=== PATIENT | female | born 1995 | race Caucasian/White ===

== ENCOUNTER 2018-02-15 15:53 | Outpatient (CLI) | payer MEDICAID ==
--- NOTE | 2018-02-18 15:03 | Non Stress Test Report ---
Non Stress Test Datetime Report Generated by CPN: 02/18/2018 15:03 DEMOGRAPHIC EGA NST: 40.1 INDICATION Indication for Study: Ordered by Provider MONITORING Monitor Explained: Monitor Explained; Test Explained; Patient Verbalized Understanding Time on Monitor: 02/15/2018 16:04 Time off Monitor: 02/15/2018 17:13 NST Duration: 69 NST INTERVENTIONS NST Interventions: PO Hydration; Reposition Patient Physician Notified NST: CRosaM, CNM BABY A: [id number] BABY A Movement : Present Contraction Frequency : Irregular FHR Baseline : 140 Accelerations : 15X15 Decelerations : None Variability : Moderate 6-25bpm NST Review: Meets Criteria for Reactive NST NST Review and Verified By : MINNIE Johnson Results: Reactive NST REPORT Report Trigger: Send Report
== END 2018-02-15 17:15 | disposition home or self-care (01) ==
LOC: LC 15:53
PROVIDERS: ATTEND Obstetrics & Gynecology
DX: O47.1 False labor at or after 37 completed weeks of gestation (principal); O48.0 Post-term pregnancy; Z3A.40 40 weeks gestation of pregnancy
CPT/HCPCS: 59025

== ENCOUNTER 2018-02-18 15:12 | Outpatient (CLI) | payer OTHER ==
--- NOTE | 2018-02-18 15:46 | Non Stress Test Report ---
Non Stress Test Datetime Report Generated by CPN: 02/18/2018 15:46 DEMOGRAPHIC Test Number: 1 EGA NST: 40.4 INDICATION Indication for Study: Ordered by Provider MONITORING Monitor Explained: Monitor Explained; Test Explained; Patient Verbalized Understanding Time on Monitor: 02/18/2018 15:21 Time off Monitor: 02/18/2018 15:43 NST Duration: 22 NST INTERVENTIONS NST Interventions: PO Hydration Physician Notified NST: Sebastian BABY A Movement : Present Contraction Frequency : 9 FHR Baseline : 130 Accelerations : 15X15 Variability : Moderate 6-25bpm NST Review: Meets Criteria for Reactive NST NST Review and Verified By : Rodriguez Gilliam RN NST Results: Reactive NST REPORT Report Trigger: Send Report
--- NOTE | 2018-02-18 17:20 | RADIOLOGY REPORT (SQ) ---
EXAM DESCRIPTION: U/S OB LIMITED COMPLETED DATE/TIME: 02/18/2018 5:13 pm REASON FOR STUDY: iup 40+4 for ADILIA COMPARISON: None. TECHNIQUE: Limited transabdominal grayscale ultrasound for evaluation of specific requested obstetri gordo parameters. LIMITATIONS: None. FINDINGS: Limited sonographic imaging shows an ADILIA of 11.4 cm. IMPRESSION: The ADILIA is 11.4 cm. Trimester of : Third trimester - 28 weeks to delivery. TECHNICAL DOCUMENTATION: JOB ID: [id number]- All Rights Reserved Reading location - IP/workstation name: [email or web address]
== END 2018-02-18 17:28 | disposition home or self-care (01) ==
LOC: LC 15:12
PROVIDERS: ATTEND Obstetrics & Gynecology Gynecology
PROC: 4A1HXCZ Monitoring of Products of Conception, Cardiac Rate, External Approach (ICD-10-PCS; principal; 2018-02-18)
DX: O48.0 Post-term pregnancy (principal); Z3A.40 40 weeks gestation of pregnancy
CPT/HCPCS: 59025; 76815

== ENCOUNTER 2018-02-20 17:50 | Inpatient (IN) | payer OTHER, MEDICAID ==
[2018-02-20] MEDS ORDERED: OXYTOCIN/NORMAL SALINE 20 UNIT/1,000 ML RTUINJ IV PRN (18:40)
[2018-02-20 18:53] LABS: APPEARANCE,URINE CLOUDY; BILIRUBIN,URINE NEGATIVE (NEGATIVE); COLOR,URINE YELLOW; GLUCOSE, URINE NEGATIVE (NEGATIVE); KETONES,URINE NEGATIVE (NEGATIVE); LEUKOCYTE ESTERASE,URINE SMALL (NEGATIVE); NITRITE,URINE NEGATIVE (NEGATIVE); PROTEIN,URINE NEGATIVE (NEGATIVE); URINE SPECIFIC GRAVITY 1.018; UROBILINOGEN,URINE NEGATIVE mg/dL (<2.0)
[2018-02-20] MEDS ORDERED: RINGERS SOLUTION,LACTATED 300 ML IV ONE (19:00)
[2018-02-20 19:08] LABS: ABSOLUTE BASOPHILS # (AUTO) 0.1 10^3/uL (0.0-0.2); ABSOLUTE EOSINOPHILS # (AUTO) 0.1 10^3/uL (0.0-0.6); ABSOLUTE LYMPHOCYTES (AUTO) 2.2 10^3/uL (0.5-4.7); ABSOLUTE MONOCYTES (AUTO) 0.8 10^3/uL (0.1-1.4); ABSOLUTE NEUT (AUTO) 7.2 10^3/uL (1.7-8.2); BASOPHILS % (AUTO) 0.6 % (0-2); EOSINOPHILS % (AUTO) 1.1 % (0-6); HEMATOCRIT 35.3 % (36.0-47.0); HEMOGLOBIN 11.5 g/dL (12.0-15.5); LYMPHOCYTES % (AUTO) 20.7 % (13-45); MEAN CORPUSCULAR HGB CONC 32.5 g/dL (32.0-36.0); MEAN CORPUSCULAR VOLUME 80 fl (80-97); MONOCYTES % (AUTO) 7.9 % (3-13); PLATELET COUNT 301 10^3/uL (150-450); RED CELL DISTRIBUTION WIDTH 14.5 % (11.5-14.0); SEGMENTED NEUTROPHILS % (AUTO) 69.7 % (42-78); TOTAL CELLS COUNTED % (AUTO) 100 %; WHITE BLOOD COUNT 10.4 10^3/uL (4.0-10.5)
[2018-02-20 19:20] LABS: URINE AMPHETAMINES SCREEN NEGATIVE; URINE BARBITURATES SCREEN NEGATIVE; URINE BENZODIAZEPINES SCREEN NEGATIVE; URINE COCAINE SCREEN NEGATIVE; URINE MARIJUANA (THC) SCREEN NEGATIVE; URINE METHADONE SCREEN NEGATIVE; URINE PHENCYCLIDINE SCREEN NEGATIVE
[2018-02-20] MEDS ORDERED: DINOPROSTONE 10 MG VAGINAL INSERT.SR ONE (19:36)
[2018-02-20] MEDS: RINGERS SOLUTION,LACTATED 1,000 ML IV PRN (19:42)
[2018-02-20] MEDS: DINOPROSTONE 10 MG VAGINAL INSERT.SR PV PRN (19:43)
[2018-02-21] MEDS: DINOPROSTONE 10 MG VAGINAL INSERT.SR PV PRN (04:07)
[2018-02-21] MEDS: RINGERS SOLUTION,LACTATED 1,000 ML IV PRN (04:11)
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
[2018-02-21] MEDS ORDERED: OXYTOCIN/NORMAL SALINE 0 UNIT/0 ML RTUINJ ONE (10:17)
[2018-02-21] MEDS ORDERED: LIDOCAINE 1% INJ-PF (10 MG/ML) 30 ML SDV ONE (10:18)
[2018-02-21] MEDS ORDERED: MISOPROSTOL 0.2 MG TABLET ONE (10:18)
[2018-02-21] MEDS ORDERED: ROCURONIUM BROMIDE INJ 50 MG/5 ML VIAL IV ONE (11:28)
[2018-02-21] MEDS ORDERED: SUCCINYLCHOLINE CHLORIDE INJ 200 MG/10 ML VIAL ONE (11:28)
[2018-02-21] MEDS ORDERED: OXYTOCIN/NORMAL SALINE 20 UNIT/1,000 ML RTUINJ ONE ×2 (14:48→14:51)
[2018-02-21] MEDS ORDERED: GLYCOPYRROLATE INJ 0.4 MG/2 ML VIAL ONE (14:48)
[2018-02-21] MEDS ORDERED: CEFAZOLIN INJ 1 GM VIAL ONE ×2 (14:48→15:12)
[2018-02-21] MEDS ORDERED: CITRIC ACID/SODIUM CITRATE ORAL SOLN 15 ML UDCUP ONE (14:48)
[2018-02-21] MEDS ORDERED: NEOMY/BACITRAC ZN/POLY OINT 15 GM ONE (14:49)
[2018-02-21] MEDS ORDERED: METHYLERGONOVINE MALEATE INJ/PF 0.2 MG/1 ML AMPULE ONE (14:49)
[2018-02-21] MEDS ORDERED: OXYTOCIN 10 UNIT/ML VIAL ONE (14:50)
[2018-02-21] MEDS ORDERED: FENTANYL CITRATE INJ/PF 100 MCG/2 ML AMPUL ONE (14:50)
[2018-02-21] MEDS ORDERED: ONDANSETRON HCL INJ/PF 4 MG/2 ML SDV ONE ×2 (14:51→15:23)
[2018-02-21] MEDS ORDERED: EPHEDRINE SULFATE INJ 50 MG/1 ML AMPULE ONE (14:51)
[2018-02-21] MEDS ORDERED: MIDAZOLAM 2 MG/2 ML INJ ONE (14:51)
[2018-02-21] MEDS ORDERED: PROMETHAZINE HCL INJ 25 MG/1 ML VIAL IV PRN ×2 (15:22→16:08)
[2018-02-21] MEDS ORDERED: FENTANYL CITRATE INJ/PF 100 MCG/2 ML AMPUL IV PRN ×3 (15:22)
[2018-02-21] MEDS ORDERED: MEPERIDINE HCL/PF INJ 25 MG/1 ML DISP.SYRIN IV PRN (15:22)
[2018-02-21] MEDS ORDERED: MORPHINE SULFATE 10 MG/ML INJ IV PRN (15:22)
[2018-02-21] MEDS ORDERED: ONDANSETRON HCL INJ/PF 4 MG/2 ML SDV IV PRN (15:22)
[2018-02-21] MEDS ORDERED: DIPHENHYDRAMINE HCL 50 MG/ML VIAL IV PRN (15:22)
[2018-02-21] MEDS ORDERED: MORPHINE SULFATE 10 MG/ML INJ ONE (15:23)
[2018-02-21] MEDS ORDERED: ACETAMINOPHEN 100 ML IV ONE (16:02)
[2018-02-21] MEDS ORDERED: OXYTOCIN/NORMAL SALINE 20 UNIT/1,000 ML RTUINJ IV PRN (16:08)
[2018-02-21] MEDS ORDERED: DIPH/PERTUSS(ACELL)/TETANUS VAC/PF 0.5 ML SYR (>=10YO) IM PRN (16:08)
[2018-02-21] MEDS ORDERED: ACETAMINOPHEN 325 MG TABLET PO PRN (16:08)
[2018-02-21] MEDS ORDERED: MEASLES,MUMPS&RUBELLA VACC/PF 0.5 ML VIAL SUBCUT PRN (16:08)
[2018-02-21] MEDS ORDERED: SIMETHICONE 80 MG TAB.CHEW PO PRN (16:08)
[2018-02-21] MEDS ORDERED: ACETAMINOPHEN 100 ML IV PRN (16:08)
[2018-02-21] MEDS ORDERED: OXYCODONE-ACETAMINOPHEN 5-325 MG TABLET PO PRN ×2 (16:08)
--- NOTE | 2018-02-21 16:14 | RADIOLOGY REPORT (SQ) ---
EXAM DESCRIPTION: KUB/ABDOMEN (SINGLE VIEW) COMPLETED DATE/TIME: 02/21/2018 3:50 pm REASON FOR STUDY: STAT SSECTION, NO COUNT PERFORMED COMPARISON: None. NUMBER OF VIEWS: One view. TECHNIQUE: Supine radiographic image of the abdomen acquired. LIMITATIONS: None. FINDINGS: Immediate post images of the mid and lower abdomen and pelvis are submitted. Gregory catheter in the bladder. Enlarged uterus. Normal bowel gas pattern. No retained s urgical instruments or markers from laparotomy sponges. There is a metallic linear foreign body over the left gluteal soft tissues marked with a [place]. Thi s could represent a portion of an electrode IMPRESSION: No retained surgical instruments over the visualized abdomen or pelvis TECHNICAL DOCUMENTATION: JOB ID: [id number] [employer]- All Rights Reserved Reading location - IP/workstation name: [email or web address]
[2018-02-21] MEDS ORDERED: KETOROLAC TROMETHAMINE INJ/PF 30 MG/1 ML SDV IV ONE (16:15)
[2018-02-21] MEDS ORDERED: HYDROMORPHONE HCL INJ/PF 2 MG/ML AMPULE ONE (16:21)
--- NOTE | 2018-02-21 16:27 | Brief Operative Note ---
BRIEF OPERATIVE REPORT DATE OF SURGERY: 02/21/18 TIME OF SURGERY: 16:00 PREOPERATIVE DIAGNOSIS: Cord prolapse, 7cm, , 41+0ega POSTOPERATIVE DIAGNOSIS: ISABEL - delivered SURGEON: KIKE FRANCO FINDINGS: VMI Apgars 2/7, weight 9#2oz, Normal uterus, normal bilateral tubes/ ovaries. IVF 2000ml, UOP 275ml, EBL 800ml. COMPLICATIONS: None ESTIMATED BLOOD LOSS: 800ml TISSUE REMOVED OR ALTERED: placenta and cord sent to pathology TECHNICAL PROCEDURE: Primary Section for cord prolapse
[2018-02-21] MEDS: HYDROMORPHONE HCL INJ/PF 2 MG/ML AMPULE IV PRN ×3 (16:30→22:23)
[2018-02-21] MEDS ORDERED: KETOROLAC TROMETHAMINE INJ/PF 30 MG/1 ML SDV ONE (17:03)
[2018-02-21] MEDS: AMPICILLIN SODIUM/SULBACTAM NA 3 GM in NORMAL SALINE 100 ML IV SCH (17:44)
--- NOTE | 2018-02-21 17:44 | Operative Report ---
Operative Report DATE OF SURGERY: 02/21/18 PREOPERATIVE DIAGNOSIS: Cord prolapse, 7cm, , 41+0ega POSTOPERATIVE DIAGNOSIS: ISABEL - delivered OPERATION: Primary Section for cord prolapse SURGEON: KIKE FRANCO ANESTHESIA: GA TISSUE REMOVED OR ALTERED: placenta and cord sent to pathology COMPLICATIONS: None ESTIMATED BLOOD LOSS: 800ml INTRAOPERATIVE FINDINGS: VMI Apgars 2/7, weight 9#2oz, Normal uterus, normal bilateral tubes/ovaries. IVF 2000ml, UOP 275ml, EBL 800ml. time of 1458 PROCEDURE: Anesthesia provider: [Johnson Rodas CRNA, Sebas Velasquez MD] Estimated blood loss: [800ml] Urine output: [275ml] IV fluids: [2000ml] Indications: [22yo at 41+0ega presented for induction of labor due to Post JORGE. Prior to admission she had been undergoing outpatient monitoring and was noted to have FHR decelerations on 2 occasions at 40+1 and 40+4ega and she was sent to [facility] for monitoring. She was admitted and underwent cervidil cervical ripening and was noted to have intermittent mild decelerations throughout the night while on cervidil. Her cervix was 1cm and Cooks catheter placed for additional cervical ripening at approximately 10am which seemed to resolve the intermittent decelerations and heart rate tracing returned to CAT I. At 1437 Patient was checked and cervix 6-7cm and cooks (both balloons in vagina). Cooks catheter removed. The head was well applied to the cervix and forebag was noted. AROM performed with small amount of fluid noted and head well applied to cervix. The patient was repositioned and then reported significant increase in pain and FHR deceleration noted. Cervix was re- examined and cord noted to be now beside the head and easily reduced behind the head then with next contraction despite initial reduction the cord prolapsed again. Maternal position changed to hands and knees and FSE applied as cord was again reduced then next contraction cord prolapse occurred. Stat section called and MINNIE Valdez held head away from cord. The patient was consented throughout this process and family informed that urgent section required due to cord prolapse. The risks/benefits/alternatives were reviewed and the patient was taken to the OR. Reviewed with family after completion of the procedure regarding the sequence of events and suspect that compound cord had been an issue overnight as well. Reviewed with patient and her family that she is a good candidate for TOLAC in the future.] Procedure: Upon arrival in OR she was prepped and draped in the normal sterile fashion and placed in the dorsal supine position with a leftward tilt. General anesthesia was obtained. A Pfannenstiel skin incision was then made and carried through to the underlying layers of the fascia with the scalpel. The fascia was incised in the midline and the incision extended laterally with the Gramajo scissors. The superior aspect of the fascial incision was then grasped with Ervin clamps elevated and the underlying rectus muscles dissected off [ bluntly]. Attention was then turned to the inferior aspect of the fascial incision which in a similar fashion was grasped, tented up with Ervin clamps, and the rectus muscles dissected off [bluntly]. The rectus muscles were then in the midline and the peritoneum at the amount identified and entered [bluntly]. The peritoneal incision was then extended superiorly and inferiorly with good visualization of the bladder which was distended. The bladder blade was then inserted and the lower uterine segment incised in a transverse fashion with the scalpel. The uterine incision was then extended bluntly. The bladder blade was removed and the 's head was delivered from cephalic presentation atraumatically but infant converted from cephalic to oblique/transverse. This malposition was then corrected and the infant was then delivered from cephalic presentation atraumatically. The nose and mouth were suctioned and the cord doubly clamped and cut. The was handed off to waiting NICU personnel. Gregory to gravity was accomplished by RN during delivery of the infant which effectively decompressed the bladder. The placenta was then delivered spontaneously and the uterus exteriorized and cleared of all clots and debris. The uterine incision was then repaired with 1- 0 Vicryl in a running locked fashion. A second layer of the same suture was used to obtain hemostasis via imbrication of the initial layer. The bladder flap was then repaired with 3-0 chromic in a running fashion. The uterus was returned to the patient's abdomen and Interceed was placed overlying the uterine incision to prevent adhesions. The gutters were cleared of all clots and debris. All operative sites were noted to be hemostatic. The fascia was reapproximated with 0 Vicryl in a running fashion from each lateral edge to the midline. The skin was closed with 3-0 Monocryl in a running subcuticular fashion with overlying Dermabond for additional dressing as well as wound closure. The patient tolerated the procedure well. Sponge lap needle and instrument counts are correct times 2. 1 g of Ancef were given prior to skin incision and additional one gram given during the procedure. The patient was taken to the recovery area awake and in stable condition.
[2018-02-21] MEDS ORDERED: AMPICILLIN SOD/SULBACTAM 3 GM VIAL IV SCH (18:00)
[2018-02-21] MEDS: DOCUSATE SODIUM 100 MG CAPSULE PO SCH (18:55)
[2018-02-21] MEDS ORDERED: AMPICILLIN SODIUM/SULBACTAM NA 3 GM in NORMAL SALINE 100 ML IV SCH (21:00)
[2018-02-21] MEDS: KETOROLAC TROMETHAMINE INJ/PF 30 MG/1 ML SDV IV SCH (22:23)
[2018-02-22] MEDS: AMPICILLIN SODIUM/SULBACTAM NA 3 GM in NORMAL SALINE 100 ML IV SCH ×5 (00:06→23:26)
[2018-02-22] MEDS: HYDROMORPHONE HCL INJ/PF 2 MG/ML AMPULE IV PRN (03:46)
[2018-02-22] MEDS: KETOROLAC TROMETHAMINE INJ/PF 30 MG/1 ML SDV IV SCH (05:20)
[2018-02-22 06:59] LABS: HEMATOCRIT 30.3 % (36.0-47.0); HEMOGLOBIN 9.9 g/dL (12.0-15.5); MEAN CORPUSCULAR HEMOGLOBIN 26.3 pg (27.0-33.4); MEAN CORPUSCULAR HGB CONC 32.8 g/dL (32.0-36.0); MEAN CORPUSCULAR VOLUME 80 fl (80-97); PLATELET COUNT 204 10^3/uL (150-450); RED BLOOD COUNT 3.77 10^6/uL (3.72-5.28); RED CELL DISTRIBUTION WIDTH 14.2 % (11.5-14.0); WHITE BLOOD COUNT 19.2 10^3/uL (4.0-10.5)
[2018-02-22] MEDS ORDERED: OXYCODONE-ACETAMINOPHEN 5-325 MG TABLET PO PRN ×2 (08:08)
[2018-02-22] MEDS: DOCUSATE SODIUM 100 MG CAPSULE PO SCH ×2 (09:23→17:18)
[2018-02-22] MEDS: PRENATAL VITAMIN W DHA CAPSULE PO SCH (09:23)
[2018-02-22] MEDS: IBUPROFEN 800 MG TABLET PO SCH ×3 (11:55→23:27)
--- NOTE | 2018-02-22 12:07 | RADIOLOGY REPORT (SQ) ---
EXAM DESCRIPTION: VENOUS UNILATERAL LOWER COMPLETED DATE/TIME: 02/22/2018 11:46 am REASON FOR STUDY: pain on left calf after delivery COMPARISON: None. TECHNIQUE: Dynamic and static kevin scale and color images acquired of the left leg venous system. Se lected spectral images acquired with additional compression and augmentation maneuvers. The contralat eral common femoral vein and saphenofemoral junction were also imaged. Images stored on PACS. LIMITATIONS: None. FINDINGS: COMMON FEMORAL: Normal phasicity, compression and augmentation. No visualized echogenic ma terial on kevin scale. No defects on color images. FEMORAL: Normal compression and augmentation. No visualized echogenic material on kevin scale. No defe cts on color images. POPLITEAL: Normal compression, augmentation. No visualized echogenic material on kevin scale. No defec ts on color images. CALF VESSELS: Normal compression, augmentation. No visualized echogenic material on kevin scale. No de fects on color images. GSV and SSV: Normal compression, augmentation. No visualized echogenic material on kevin scale. No def ects on color images. ANY DEEP VENOUS INSUFFICIENCY: Not evaluated. ANY EVIDENCE OF POPLITEAL CYST: No. OTHER: No other significant finding. CONTRALATERAL COMMON FEMORAL VEIN AND SAPHENOFEMORAL JUNCTION: Normal phasicity, compression and augmentation. No visualized echogenic material on kevin scale. No de fects on color images. IMPRESSION: NO EVIDENCE DVT OR SVT IN THE LEFT LEG. TECHNICAL DOCUMENTATION: JOB ID: [id number] [employer]- All Rights Reserved Reading location - IP/workstation name: [email or web address]
--- NOTE | 2018-02-22 13:02 | PDOC PROGRESS REPORT ---
Subjective-OB Progress Note for:: 02/22/18 Subjective: 22yo G1 now P1 s/p primary ppd1. Pt. ambulating, voiding and without difficulty. Reports new onset of left calf pain this am Physical Exam (OB) Vital Signs: Temp Pulse Resp BP Pulse Ox 99.5 F 92 16 110/65 98 02/22/18 07:36 02/22/18 07:36 02/22/18 07:36 02/22/18 07:36 02/22/18 07:36 Intake & Output 02/21/18 02/22/18 02/23/18 06:59 06:59 06:59 Intake Total 375 Output Total 1200 Balance -825 Weight 75.9 kg - General General Appearance: Appears well In distress: None - PIH/Pre-Eclampsia DTR's: 1 + Clonus: Negative Headache: Absent Epigastric Pain: No Visual Changes: No - Dressing Removed: Yes Incision: Open, Well Approximated Closure Type: Surgical Glue - Lochia Lochia Amount: Small 10-25 ml Lochia Color: Rubra/Red - Abdomen Description: Tender, Soft, Round Hernia Present: No Fundal Description: Non-Midline Describe if Not Midline: sightly displaced to the right Fundal Height: u/u - u/2 - Respiratory Respiratory Status: No respiratory distress - Extremities Upper extremity: Normal inspection Lower extremities: Normal inspection Calf: Normal, Tender - left - Neurological Cognition: Normal Orientation: AAOx4 - Psychological Associated symptoms: Normal affect, Normal mood Objective-Diagnostic Laboratory: 02/22/18 06:53 02/22/18 06:53 WBC 19.2 H RBC 3.77 Hgb 9.9 L Hct 30.3 L MCV 80 MCH 26.3 L MCHC 32.8 RDW 14.2 H Plt Count 204 Assessment and Plan(PN) - Assessment and Plan (1) Acute blood loss anemia Is this a current diagnosis for this admission?: Yes Plan: increase dietary iron and feso4 supplementation (2) Delivery by emergency section Is this a current diagnosis for this admission?: Yes Plan: routine pp care (3) Umbilical cord prolapse in labor and delivery, delivered Is this a current diagnosis for this admission?: Yes Plan: delivered (4) Post-dates Qualifiers: Post-term type: 40-42 weeks gestation Qualified Code(s): O48.0 - Post-term Is this a current diagnosis for this admission?: Yes Plan: delivered (5) Calf pain Is this a current diagnosis for this admission?: Yes Plan: normal venous u/s, continue to monitor - Time Spent with Patient Time with patient: Less than 15 minutes Medications reviewed and adjusted accordingly: Yes - Disposition Anticipated Discharge: Home Within: within 24 hours
[2018-02-23] MEDS: AMPICILLIN SODIUM/SULBACTAM NA 3 GM in NORMAL SALINE 100 ML IV SCH (05:09)
[2018-02-23] MEDS: IBUPROFEN 800 MG TABLET PO SCH ×2 (05:12→12:14)
[2018-02-23] MEDS: DOCUSATE SODIUM 100 MG CAPSULE PO SCH (09:41)
[2018-02-23] MEDS: PRENATAL VITAMIN W DHA CAPSULE PO SCH (09:41)
--- NOTE | 2018-02-23 09:42 | PDOC PROGRESS REPORT ---
Subjective-OB Progress Note for:: 02/23/18 Subjective: Doing well, ready to go home, no pain in legs, voiding, ambulating, hsb at BS Physical Exam (OB) Vital Signs: Temp Pulse Resp BP Pulse Ox 98.9 F 85 14 103/51 L 99 02/23/18 07:41 02/23/18 07:41 02/23/18 07:41 02/23/18 07:41 02/23/18 07:41 Intake & Output 02/22/18 02/23/18 02/24/18 06:59 06:59 06:59 Intake Total 375 395 Output Total 1200 300 Balance -825 95 - PIH/Pre-Eclampsia DTR's: 2 + Clonus: Negative Headache: Absent Epigastric Pain: No Visual Changes: No - Dressing Removed: Yes Incision: Open Closure Type: Surgical Glue - Lochia Lochia Amount: Scant < 10 ml Lochia Color: Rubra/Red - Abdomen Description: Tender, Soft Hernia Present: No Fundal Description: Firm, Midline Describe if Not Midline: sightly displaced to the right Fundal Height: u/u - u/2 Objective-Diagnostic Laboratory: 02/22/18 06:53 Assessment and Plan(PN) - Assessment and Plan (1) Acute blood loss anemia Is this a current diagnosis for this admission?: Yes (2) Calf pain Is this a current diagnosis for this admission?: Yes (3) Delivery by emergency section Is this a current diagnosis for this admission?: Yes (4) Umbilical cord prolapse in labor and delivery, delivered Is this a current diagnosis for this admission?: Yes (5) Post-dates Qualifiers: Post-term type: 40-42 weeks gestation Qualified Code(s): O48.0 - Post-term Is this a current diagnosis for this admission?: Yes - Time Spent with Patient Time with patient: Less than 15 minutes Medications reviewed and adjusted accordingly: Yes - Disposition Anticipated Discharge: Home Within: Other - home today
--- NOTE | 2018-02-23 09:51 | PDOC DISCHARGE SUMMARY ---
Final Diagnosis Discharge Date: 02/23/18 - Final Diagnosis (1) Acute blood loss anemia Is this a current diagnosis for this admission?: Yes (2) Calf pain Is this a current diagnosis for this admission?: Yes (3) Delivery by emergency section Is this a current diagnosis for this admission?: Yes (4) Umbilical cord prolapse in labor and delivery, delivered Is this a current diagnosis for this admission?: Yes (5) Post-dates Is this a current diagnosis for this admission?: Yes Discharge Data - Discharge Medication Prescriptions: Oxycodone HCl/Acetaminophen [Percocet 5-325 mg Tablet] 2 tab PO Q4HP PRN #30 tablet PRN Reason: Ibuprofen [Motrin 800 mg Tablet] 800 mg PO Q6 #60 tablet Home Medications: No122/Iron/Folic Acid [ Multi Tablet] 1 each PO DAILYP PRN Ibuprofen [Motrin 800 mg Tablet] 800 mg PO Q6 #60 tablet 02/23/18 Oxycodone HCl/Acetaminophen [Percocet 5-325 mg Tablet] 2 tab PO Q4HP PRN #30 tablet 02/23/18 Gestational Age: 41 Reason(s) for Admission: Induction of Labor Procedures: NST, Ultrasound Intrapartum Procedure(s): : Low Cervical, Transverse Intrapartum Procedure Note: cord prolapse - Mallory Data Baby 1 Female Weight: 3.26 kg Home with Mother: Yes Complications: No - Diagnosis Test Laboratory: Temp Pulse Resp BP Pulse Ox 98.9 F 85 14 103/51 L 99 02/23/18 07:41 02/23/18 07:41 02/23/18 07:41 02/23/18 07:41 02/23/18 07:41 02/20/18 02/20/18 02/22/18 18:36 18:56 06:53 RBC 4.40 3.77 Hgb 11.5 L 9.9 L Hct 35.3 L 30.3 L Urine Opiates Screen NEGATIVE - Discharge information/Instructions Discharge Activity: Activity As Tolerated, No Lifting Over 10 Pounds, Pelvic Rest Discharge Diet: As Tolerated, Regular Disposition: HOME, SELF-CARE Follow up with: [facility] in: 1, Weeks - CBC today, Rx for Ampicillin/Clavulanate 500/124 1 po q 12 hours x 7 days
[2018-02-23 10:24] LABS: HEMATOCRIT 30.7 % (36.0-47.0); MEAN CORPUSCULAR HEMOGLOBIN 26.1 pg (27.0-33.4); MEAN CORPUSCULAR HGB CONC 32.4 g/dL (32.0-36.0); MEAN CORPUSCULAR VOLUME 81 fl (80-97); PLATELET COUNT 282 10^3/uL (150-450); RED BLOOD COUNT 3.81 10^6/uL (3.72-5.28); RED CELL DISTRIBUTION WIDTH 14.5 % (11.5-14.0); WHITE BLOOD COUNT 17.9 10^3/uL (4.0-10.5)
[2018-02-23 10:34] VITALS: BP 110/68
--- NOTE | 2018-02-25 12:13 | Delivery Summary ---
Del Sum A-C Datetime Report Generated by CPN: 02/25/2018 12:13 DELIVERY PERSONNEL DELIVERY PERSONNEL: [id number] Delivery Doctor:: Julita Billingsley MD Anesthesiologist:: Sebas Velasquez MD GETTERING FILAMENT MACHINE OPERATOR:: Johnson Rodas CRNA Labor and Delivery Nurse:: Mehnaz Johnson RNisotope technician Nurse:: Lauren Tran RN Rn Hemodialysis Charge:: KETTY Gooden Merchandising Director:: Dr. Jem Zelaya Nursery Nurse:: Erna Pinon RN Nursery Nurse:: Mae Cummins RN Blade Aligner/BARREL BRIDGE ASSEMBLER: Lesa Ag CST Blade Aligner/BARREL BRIDGE ASSEMBLER: Marj Tran, INFORMATION SECURITY ASSOCIATE MATERNAL INFORMATION Delivery Anesthesia: General Medications After Delivery: Pitocin Bolus-Please Comment Meds After Delivery Comment: Pitocin 20 units in 1 L NS bolusing per order Estimated Blood Loss (ml): 800 Other Maternal Complications: umbilical cord prolapse LABOR SUMMARY EDC: 02/14/2018 00:00 No. Babies in Womb: 1 Attempted: No Labor Anesthesia: None LABOR INFORMATION Reason for Induction: Post Dates Cervical Ripening Agents: Cervidil Group B Beta Strep: negative Antibiotics # of Doses: 1 Antibiotics Time of Last Dose: 1452 Name of Antibiotic Given: Ancef Steroids Given: None Reason Steroids Not Administered: Not Applicable MEMBRANES Membranes Rupture Method: Artificial Rupture of Membranes: 02/21/2018 14:37 Length of Rupture (hr): 0.35 Amniotic Fluid Color: Clear Amniotic Fluid Amount: Small Amniotic Fluid Odor: Normal STAGES OF LABOR Stage 3 hr: 0 Stage 3 min: 1 VAGINAL DELIVERY Episiotomy: None Laceration #1: None Laceration Extension #1: N/A Sponge Count Correct: N/A Sharps Count Correct: N/A CSECTION DELIVERY Primary Indication: Prolapsed Cord Secondary Indication: Nonreassuring Status CSection Urgency: Emergency CSection Incidence: Primary Labor: No Labor Elective: N/A CSection Incision: Lower Uterine Transverse BABY A INFORMATION Delivery Date/Time: 02/21/2018 14:58 Method of Delivery: Born in Route : No : N/A Forceps: N/A Vacuum Extraction: N/A Shoulder Dystocia : No PRESENTATION/POSITION BABY A Presentation: Cephalic PLACENTA INFORMATION BABY A Placenta Delivery Time : 02/21/2018 14:59 Placenta Method of Delivery: Manual Removal Placenta Status: Delivered SCORES BABY A Heart Rate 1 min: >100 bpm Resp Effort 1 min: Absent Reflex Irritability 1 min: No Response Muscle Tone 1 min: Flaccid Color 1 min: Blue/Pale Resuscitation Effort 1 min: PPV/NCPAP SCORE 1 MIN: 2 Heart Rate 5 min: >100 bpm Resp Effort 5 min: Good Cry Reflex Irritability 5 min: Grimace Muscle Tone 5 min: Some Flexion of Extremities Color 5 min: Body [place], Extremities Blue SCORE 5 MIN: 7 INFANT INFORMATION BABY A Gestational Age at Delivery: 41.0 Gestational Status: Late Term- 41- 41.6 Weeks Outcome : Liveborn Condition : Stable Sex: Male IDENTIFICATION BABY A Infant Verification Date/Time: 02/21/2018 15:43 ID Band Number: [id number] Mother's Name Verified: Yes RN Verifying Infant: YuliaZaki Davis RN and Yann Pickens RN WEIGHT/LENGTH BABY A Birthweight (gm): 4088 Weight (lb): 9 Weight (oz): 0 Infant Length (in): 20.75 Length (cm): 52.71 CORD INFORMATION BABY A No. Cord Vessels: 3 Nuchal Cord : N/A Cord Blood Taken: Yes-For Eval (Mom's Blood Type - or O+) ASSESSMENT BABY A Physical Findings- Other: See NICU record for assessment details Skin to Skin: No Skin to Skin Time (min): 0 Merchandising Director/ALS Called : Yes Care By: Pedro Cummins RN/Donna Pinon RN/ Nathalie Transferred To: Nursery BABY B INFORMATION : N/A
== END 2018-02-23 13:00 | disposition home or self-care (01) | DRG 765 ==
LOC: LR 17:50 → 2S 02-21 18:10
PROVIDERS: ADMIT Student in an Organized Health Care Education/Training Program; ATTEND Student in an Organized Health Care Education/Training Program
PROC: 10D00Z1 Extraction of Products of Conception, Low, Open Approach (ICD-10-PCS; principal; 2018-02-21)
PROC: 0U7C7ZZ Dilation of Cervix, Via Natural or Artificial Opening (ICD-10-PCS; 2018-02-21)
PROC: 3E0234Z Introduction of Serum, Toxoid and Vaccine into Muscle, Percutaneous Approach (ICD-10-PCS; 2018-02-23)
DX: O69.0XX0 Labor and delivery complicated by prolapse of cord, not applicable or unspecified (principal); D62 Acute posthemorrhagic anemia; O99.02 Anemia complicating childbirth; O76 Abnormality in fetal heart rate and rhythm complicating labor and delivery; O48.0 Post-term pregnancy; Z3A.41 41 weeks gestation of pregnancy; M79.662 Pain in left lower leg; Z23 Encounter for immunization; Z37.0 Single live birth
CPT/HCPCS: 1961; 36415; 74018; 80307; 81005; 85025; 85027; 86592; 86850; 86900; 86901; 88307; 90715; 93971; 94760; 94799; C1726; J0131; J0295; J0330; J0690; J1170; J1885; J2210; J2250; J2270; J2405; J2590; J3010; J3490

== ENCOUNTER 2019-06-12 08:55 | Emergency (ER) | payer MEDICAID, OTHER ==
[2019-06-12 09:39] LABS: APPEARANCE,URINE CLOUDY; BILIRUBIN,URINE NEGATIVE (NEGATIVE); COLOR,URINE YELLOW; GLUCOSE, URINE NEGATIVE (NEGATIVE); KETONES,URINE NEGATIVE (NEGATIVE); LEUKOCYTE ESTERASE,URINE LARGE (NEGATIVE); NITRITE,URINE NEGATIVE (NEGATIVE); PROTEIN,URINE 100 mg/dL (NEGATIVE); UROBILINOGEN,URINE NEGATIVE mg/dL (<2.0)
[2019-06-12] MEDS ORDERED: ONDANSETRON HCL INJ/PF 4 MG/2 ML SDV IV ONE (09:51)
[2019-06-12] MEDS ORDERED: CEFTRIAXONE 1 GM/D5W RTU 1 GM/50 ML RTUPB IV ONE (09:51)
[2019-06-12] MEDS ORDERED: KETOROLAC TROMETHAMINE INJ/PF 30 MG/1 ML SDV IV ONE (09:51)
--- NOTE | 2019-06-12 09:51 | ER Document Report ---
HPI - HPI Time Seen by Provider: 06/12/19 09:21 Pain Level: Denies Context: Patient is a 24-year-old female who presents to the emergency department with a chief complaint of possible urinary tract infection. Patient reports she has had symptoms for the past 24 hours to include right lower quadrant pain, nausea and burning with urination. Patient states she did wipe after using the restroom and noticed some blood. Patient is unsure if this is coming from the vagina or the urethra. Patient states she has had no vomiting or flank pain. Patient states she did have a temp of 101.7 at home. Patient reports that she does feel bloated and that this is not her normal as she normally is very in shape and has a flat stomach. Patient states she is also having pain in the right upper quadrant. Patient states nothing makes this better or worse but has been present for 24 hours. - CONSTITUTIONAL Constitutional: DENIES: Fever, Chills - NEURO Neurology: REPORTS: Headache - GASTROINTESTINAL Gastrointestinal: REPORTS: Abdominal Pain - REPRODUCTIVE Reproductive: DENIES: : Past Medical History - General Information source: Patient - Social History Smoking Status: Never Smoker Frequency of alcohol use: None Drug Abuse: None Lives with: Family Family History: None Patient has suicidal ideation: No Patient has homicidal ideation: No - Past Medical History Cardiac Medical History: Reports: None Pulmonary Medical History: Reports: Hx Pneumonia - last year E[facility] Medical History: Reports: None Neurological Medical History: Reports: None Endocrine Medical History: Reports: None Renal/ Medical History: Reports: None. Denies: Hx Peritoneal Dialysis Malignancy Medical History: Reports: None GI Medical History: Reports: None Musculoskeletal Medical History: Reports None Skin Medical History: Reports None Psychiatric Medical History: Reports: None Traumatic Medical History: Reports: None Infectious Medical History: Reports: None Surgical Hx: Negative - Immunizations Hx Diphtheria, Pertussis, Tetanus Vaccination: No Vertical Provider Document - CONSTITUTIONAL Agree With Documented VS: Yes Exam Limitations: No Limitations General Appearance: No Apparent Distress Notes: GENERAL: Well-appearing, well-nourished and in no acute distress. HEAD: Atraumatic, normocephalic. EYES: Pupils equal round and reactive to light, extraocular movements intact, sclera anicteric, conjunctiva are normal. ENT: Nares patent, oropharynx clear without exudates. Moist mucous membranes. NECK: Normal range of motion, supple without lymphadenopathy or JVD. LUNGS: Breath sounds clear to auscultation bilaterally and equal. No wheezes rales or rhonchi. HEART: Regular rate and rhythm without murmurs, rubs or gallops. ABDOMEN: Soft, RUQ and RLQ tenderness, normoactive bowel sounds. No guarding, no rebound. No masses appreciated. BACK: No cervical, thoracic, lumbar midline tenderness. No saddle anesthesia, normal distal neurovascular exam. No CVA tenderness. GENITOURINARY: Deferred. EXTREMITIES: Normal range of motion, no pitting or edema. No clubbing or cyanosis. NEUROLOGICAL: Cranial nerves II through XII grossly intact. Normal speech, normal gait. PSYCH: Normal mood, normal affect. SKIN: Warm, Dry, normal turgor, no rashes or lesions noted. - INFECTION CONTROL TRAVEL OUTSIDE OF THE [place] IN LAST 30 DAYS: No Course - Re-evaluation Re-evalutation: 06/12/19 09:25 Upon initial assessment patient is sitting upright in chair and in no acute distress. Patient is nontoxic-appearing. Patient reports a temp of 101.7 at home and right upper and right lower quadrant tenderness. Patient states she is having urinary symptoms with possible blood in the urine. Patient also reports significant bloating. Upon assessment while in the chair patient does have significant right upper and right lower quadrant tenderness. Urinalysis is pending. 09:55 Patient does note to have a urinary tract infection. A urine culture was sent. I did discuss the results with the patient and did a brief abdominal assessment. Patient does remain significantly tender in the right upper quadrant which she states is where the pain is worse. This is an atypical presentation for a UTI. Patient does not have any CVA tenderness. I will start a line, give IV fluids and obtain basic labs. Patient to be placed on a stretcher where I will perform a thorough abdominal assessment to determine if the patient needs additional imaging. 06/12/19 10:45 Upon reevaluation patient is resting comfortably on stretcher. I did place the patient in a supine position with the legs straight. Upon reevaluation abdomen is soft. Patient does have tenderness in the right upper quadrant right mid abdomen and right lower quadrant with palpation. I have ordered an abdominal ultrasound. Labs are unremarkable with no leukocytosis, alteration in electrolytes or liver function. 06/12/19 14:25 Upon reevaluation patient is resting comfortably on stretcher. Patient states that her abdominal pain is still present but much better. Patient is less tender upon palpation to the right mid to right lower quadrant. Patient able to jump up and down without any distress. Negative limon's sign, negative psoas sign, negative mcburney's sign. Abdomen is soft. The ultrasound did notes a slight enlargement of the spleen. I did discuss the findings and patient's case with Dr. Guerra who recommends the patient have close follow-up with her primary care physician due to the enlargement of the spleen, patient does have a source of infection as she does have a urinary tract infection. We will treat the patient for the UTI and have explained strict return precautions to include high fever, dizziness, severe abdominal pain, or any other worsening signs or symptoms. Patient states her blood pressures normally in the 90s systolic. Patient is not tachycardic or febrile. - Laboratory Result Diagrams: 06/12/19 10:35 06/12/19 10:35 Laboratory results interpreted by me: 06/12/19 09:06 Urine Protein 100 H Urine Blood MODERATE H Ur Leukocyte Esterase LARGE H 06/12/19 12:33 Laboratory 06/12/19 06/12/19 06/12/19 09:06 09:06 10:35 WBC 11.6 H RBC 4.46 Hgb 12.2 Hct 37.0 MCV 83 MCH 27.4 MCHC 33.1 RDW 14.1 H Plt Count 278 Seg Neutrophils % 71.3 Lymphocytes % 18.0 Monocytes % 7.3 Eosinophils % 2.4 Basophils % 1.0 Absolute Neutrophils 8.3 H Absolute Lymphocytes 2.1 Absolute Monocytes 0.8 Absolute Eosinophils 0.3 Absolute Basophils 0.1 Sodium Potassium Chloride Carbon Dioxide Anion Gap BUN Creatinine Est GFR ( Amer) Est GFR (Non-Af Amer) Glucose Calcium Total Bilirubin Direct Bilirubin Neonat Total Bilirubin Neonat Direct Bilirubin Neonat Indirect Bili AST ALT Alkaline Phosphatase Total Protein Albumin Lipase Urine Color YELLOW Urine Appearance CLOUDY Urine pH 7.0 Ur Specific Hopkins 1.020 Urine Protein 100 H Urine Glucose (UA) NEGATIVE Urine Ketones NEGATIVE Urine Blood MODERATE H Urine Nitrite NEGATIVE Urine Bilirubin NEGATIVE Urine Urobilinogen NEGATIVE Ur Leukocyte Esterase LARGE H Urine WBC (Auto) >182 Urine RBC (Auto) 171 Urine Bacteria (Auto) 2+ Urine WBC Clumps MANY Squamous Epi Cells Auto 9 Urine Mucus (Auto) FEW Urine Ascorbic Acid NEGATIVE Urine HCG, Qual NEGATIVE 06/12/19 10:35 WBC RBC Hgb Hct MCV MCH MCHC RDW Plt Count Seg Neutrophils % Lymphocytes % Monocytes % Eosinophils % Basophils % Absolute Neutrophils Absolute Lymphocytes Absolute Monocytes Absolute Eosinophils Absolute Basophils Sodium 138.0 Potassium 4.1 Chloride 104 Carbon Dioxide 27 Anion Gap 7 BUN 11 Creatinine 0.70 Est GFR ( Amer) > 60 Est GFR (Non-Af Amer) > 60 Glucose 81 Calcium 8.8 Total Bilirubin 0.4 Direct Bilirubin 0.1 Neonat Total Bilirubin Not Reportable Neonat Direct Bilirubin Not Reportable Neonat Indirect Bili Not Reportable AST 15 ALT 11 Alkaline Phosphatase 36 L Total Protein 6.2 L Albumin 3.7 Lipase 62.9 Urine Color Urine Appearance Urine pH Ur Specific Hopkins Urine Protein Urine Glucose (UA) Urine Ketones Urine Blood Urine Nitrite Urine Bilirubin Urine Urobilinogen Ur Leukocyte Esterase Urine WBC (Auto) Urine RBC (Auto) Urine Bacteria (Auto) Urine WBC Clumps Squamous Epi Cells Auto Urine Mucus (Auto) Urine Ascorbic Acid Urine HCG, Qual - Diagnostic Test Radiology reviewed: Reports reviewed Radiology results interpreted by me: 06/12/19 14:35 Abdomen Ultrasound 06/12/19 11:13 IMPRESSION: Prominent spleen. No other significant finding. Discharge - Discharge Clinical Impression: Spleen enlargement Urinary tract infection Qualifiers: Urinary tract infection type: acute cystitis Hematuria presence: with hematuria Qualified Code(s): N30.01 - Acute cystitis with hematuria Abdominal pain Qualifiers: Abdominal location: right lower quadrant Qualified Code(s): R10.31 - Right lower quadrant pain Condition: Stable Disposition: HOME, SELF-CARE Additional Instructions: Today you were seen in the emergency department for possible urinary tract infection. You do have bacteria in her urine and are being diagnosed with a UTI. You have received your first dose of IV antibiotics. He will be placed on Keflex twice a day for the next 7 days. Please start this dose tonight. Please take Tylenol or ibuprofen as needed for pain or fever. Your abdominal ultrasound did show a slight enlargement of the spleen. Please follow-up with your primary care physician to have this reevaluated. At this time I do not think you require a CAT scan of the abdomen but please return if your symptoms worsen. Strict return precautions include pain that becomes more severe, steady or concentrated in one area, vomiting, high fevers, if your abdomen becomes swollen or distended or any other concerning signs or symptoms. Urinary Tract Infection Your evaluation indicates that you have a urinary tract infection. This is due to germs growing in the bladder. This is a common problem. This infection usually responds quickly to antibiotics. Your antibiotic should be taken exactly as prescribed. Drink plenty of fluids -- three to four quarts a day. Occasionally, a bladder anesthetic will be prescribed to help stop the feeling of urgency until the antibiotic has a chance to clear the infection. This may cause your urine to be dark orange. Certain urine infections require a culture. If the doctor obtained a culture, the results will be back in two days. You should call to see if a change in treatment is needed. A repeat urinalysis after you finish treatment is often recommended. The physician will let you know if further testing is required. Call the doctor if you develop fever, chills, flank pain, inability to urinate, or blood in the urine. Abdominal Pain There are many causes of abdominal pain. Pain can mean a serious problem requiring surgery (such as appendicitis). It can also be an innocent problem that goes away on its own (such as a viral infection). Often, time must pass to determine the cause of pain. The physician does not feel that hospitalization is necessary, at present. Things may change within the next 24 hours. Call the doctor or come back for re- examination if any problems occur, such as: (1) Pain that becomes more severe, steady, or becomes concentrated in one specific area. Also, pain that is more severe with movement or coughing. (2) Vomiting that persists or becomes more frequent. (3) Blood in the vomitus, urine, or bowel movements. Blood in the stool may have a tarry or black appearance. (4) Shaking chills or fever greater than 100 degrees F. (5) The abdomen becomes more distended or swollen. (6) Bowel movements cease. (7) Failure to improve as expected. Prescriptions: Cephalexin Monohydrate [Keflex 500 mg Capsule] 500 mg PO BID 7 Days #14 capsule Referrals: BRIAN GAUTAM MD [ACTIVE STAFF] - Follow up as needed
[2019-06-12 10:55] LABS: ABSOLUTE BASOPHILS # (AUTO) 0.1 10^3/uL (0.0-0.2); ABSOLUTE EOSINOPHILS # (AUTO) 0.3 10^3/uL (0.0-0.6); ABSOLUTE LYMPHOCYTES (AUTO) 2.1 10^3/uL (0.5-4.7); ABSOLUTE MONOCYTES (AUTO) 0.8 10^3/uL (0.1-1.4); ABSOLUTE NEUT (AUTO) 8.3 10^3/uL (1.7-8.2); EOSINOPHILS % (AUTO) 2.4 % (0-6); HEMOGLOBIN 12.2 g/dL (12.0-15.5); MEAN CORPUSCULAR HEMOGLOBIN 27.4 pg (27.0-33.4); MEAN CORPUSCULAR HGB CONC 33.1 g/dL (32.0-36.0); MEAN CORPUSCULAR VOLUME 83 fl (80-97); MONOCYTES % (AUTO) 7.3 % (3-13); PLATELET COUNT 278 10^3/uL (150-450); RED BLOOD COUNT 4.46 10^6/uL (3.72-5.28); RED CELL DISTRIBUTION WIDTH 14.1 % (11.5-14.0); SEGMENTED NEUTROPHILS % (AUTO) 71.3 % (42-78); TOTAL CELLS COUNTED % (AUTO) 100 %; WHITE BLOOD COUNT 11.6 10^3/uL (4.0-10.5)
[2019-06-12] MEDS ORDERED: NORMAL SALINE 1000 ML 1,000 ML IV ONE (11:12)
[2019-06-12 11:13] LABS: ALBUMIN 3.7 g/dL (3.5-5.0); ALKALINE PHOSPHATASE 36 U/L (38-126); ANION GAP 7 (5-19); ASPARTATE AMINO TRANSFERASE 15 U/L (14-36); BILIRUBIN,DIRECT 0.1 mg/dL (0.0-0.4); BILIRUBIN,TOTAL 0.4 mg/dL (0.2-1.3); BLOOD UREA NITROGEN 11 mg/dL (7-20); CALCIUM 8.8 mg/dL (8.4-10.2); CARBON DIOXIDE 27 mmol/L (22-30); CHLORIDE 104 mmol/L (98-107); GLUCOSE 81 mg/dL (75-110); POTASSIUM 4.1 mmol/L (3.6-5.0); TOTAL PROTEIN 6.2 g/dL (6.3-8.2)
--- NOTE | 2019-06-12 12:42 | RADIOLOGY REPORT (SQ) ---
EXAM DESCRIPTION: U/S ABDOMEN COMPLETE W/DOPPLER COMPLETED DATE/TIME: 06/12/2019 12:21 pm REASON FOR STUDY: right upper, mid, and lower abdominal pain. COMPARISON: None. TECHNIQUE: Dynamic and static grayscale images acquired of the abdomen and recorded on PACS. Additio nal selected color Doppler and spectral images recorded. Note: Study does not meet criteria for complete doppler/duplex scan LIMITATIONS: None. FINDINGS: PANCREAS: No masses. Visualized pancreatic duct normal caliber. LIVER: No masses. Echotexture normal. LIVER VASCULATURE: Normal directional flow of the main portal vein and hepatic veins. GALLBLADDER: No stones. Normal wall thickness. No pericholecystic fluid. ULTRASOUND-DETECTED NELSON'S SIGN: Negative. INTRAHEPATIC DUCTS AND COMMON DUCT: CBD and intrahepatic ducts normal caliber. No filling defects. INFERIOR VENA CAVA: Not seen. AORTA: No aneurysm. The distal aorta was not seen. RIGHT KIDNEY: Normal size, 10.7 cm. Normal echogenicity. No solid or suspicious masses. No hyd ronephrosis. No calcifications. LEFT KIDNEY: Normal size, 11.3 cm. Normal echogenicity. No solid or suspicious masses. No hydr onephrosis. No calcifications. SPLEEN: Prominent, 12.3 cm. No solid masses. PERITONEAL AND PLEURAL SPACES: No ascites or effusions. OTHER: No other significant finding. IMPRESSION: Prominent spleen. No other significant finding. TECHNICAL DOCUMENTATION: JOB ID: [id number] [employer]- All Rights Reserved Reading location - IP/workstation name: [email or web address]
[2019-06-12 15:13] VITALS: BP 94/61
== END 2019-06-12 15:13 | disposition home or self-care (01) ==
LOC: ER 08:55
DX: N30.01 Acute cystitis with hematuria (principal); R16.1 Splenomegaly, not elsewhere classified; R10.31 Right lower quadrant pain
CPT/HCPCS: 36415; 83690; 85025; 81025; 80053; 81001; 76700; 93976; J1885; J2405; J7030; J0696; 87086